=== PATIENT | male | born 1940 | race Caucasian/White ===

== ENCOUNTER 2017-02-12 07:45 | Day surgery (SDC) | payer MEDICARE ==
[~2017-02-12] VITALS: Ht 172.7 cm; Wt 79.0 kg
[2017-02-12] MEDS ORDERED: NORCO 325 MG-51 TAB PO (08:27)
[2017-02-12] MEDS ORDERED: XARELTO20 MG PO (08:28)
[2017-02-12 08:34] LABS: INR 1.8 (0.8-3.0); PROTHROMBIN TIME 19.9 SECONDS (9.7-12.8)
[2017-02-12 08:37] VITALS: BP 155/93; PULSE 56; TEMP 97.5
[2017-02-12 08:50] LABS: HEMATOCRIT 45.2 % (42.0-52.0); HEMOGLOBIN 15.8 g/dl (13.5-18.0); MEAN CELL VOLUME 85 fl (80.0-100.0); MEAN CORPUSCULAR HEMOGLOBIN 30 pg (27.0-31.0); MEAN CORPUSCULAR HGB CONC 35 g/dl (33.0-37.0); MEAN PLATELET VOLUME 9.5 fl (7.4-10.4); PLATELET COUNT 234 K/mm3 (130-400); RED BLOOD COUNT 5.32 M/mm3 (4.20-5.60); WHITE BLOOD COUNT 8.2 K/mm3 (4.8-10.8)
[2017-02-12 09:30] VITALS: BP 137/101; PULSE 82
[2017-02-12 09:45] VITALS: BP 120/93; PULSE 80
[2017-02-12 10:00] VITALS: BP 96/69; PULSE 81
[2017-02-12 10:00] LABS: CALCIUM 9.5 mg/dL (8.4-10.2); CREATININE, serum 1.1 mg/dL (0.66-1.25); POTASSIUM 4.1 mmol/L (3.4-5.0)
[2017-02-12 10:15] VITALS: BP 156/95; PULSE 82
[2017-02-12] MEDS ORDERED: ELIQUIS 5MG PO (10:26)
== END 2017-02-12 10:40 | disposition home or self-care (01) ==
LOC: COL.CAR 07:45
PROVIDERS: Internal Medicine Cardiovascular Disease
DX: I48.0 Paroxysmal atrial fibrillation (principal); Z79.01 Long term (current) use of anticoagulants; Z87.891 Personal history of nicotine dependence
CPT/HCPCS: J2704; J7120

== ENCOUNTER 2018-07-17 06:07 | Day surgery (SDC) | payer MEDICARE ==
[~2018-07-17] VITALS: Ht 172.8 cm; Wt 80.4 kg
[~2018-07-17 06:07] MED LIST: ELIQUIS 5MG PO; NORCO 325 MG-51 TAB PO; XARELTO20 MG PO
[2018-07-17 06:32] LABS: HEMATOCRIT 44.8 % (42.0-52.0); HEMOGLOBIN 15.4 g/dl (13.5-18.0); MEAN CELL VOLUME 84 fl (80.0-100.0); MEAN CORPUSCULAR HEMOGLOBIN 29 pg (27.0-31.0); MEAN CORPUSCULAR HGB CONC 34 g/dl (33.0-37.0); MEAN PLATELET VOLUME 8.8 fl (7.4-10.4); PLATELET COUNT 255 K/mm3 (130-400); RED BLOOD COUNT 5.35 M/mm3 (4.20-5.60); REDCELL DISTRIBUTION WIDTH-CV 13.7 % (11.5-14.5)
[2018-07-17 06:38] LABS: INR 4.7 (0.8-3.0)
[2018-07-17 06:42] LABS: CALCIUM 8.9 mg/dL (8.4-10.2); CREATININE, serum 1.2 (0.66-1.25); POTASSIUM 3.9 mmol/L (3.4-5.0)
[2018-07-17 06:45] LABS: PROTHROMBIN TIME 53.9 SECONDS (9.7-12.8)
[2018-07-17 07:39] VITALS: BP 137/94; PULSE 65; TEMP 98.2
[2018-07-17] MEDS ORDERED: ASPIRIN 32325 MG/TAB PO (07:43)
[2018-07-17] MEDS ORDERED: COUMADIN 5MG5 MG/TAB PO ×2 (07:44)
[2018-07-17] MEDS ORDERED: NORVASC 5MG5 MG/TAB PO (07:49)
[2018-07-17] MEDS ORDERED: PACERONE400 MG PO (09:16)
[2018-07-17 09:35] VITALS: BP 144/96; PULSE 71
--- NOTE | 2018-07-17 09:38 | NUR ---
Report received from Aubrie Infante.
[2018-07-17 09:40] VITALS: BP 144/96; PULSE 74
[2018-07-17 09:55] VITALS: BP 153/98; PULSE 67
[2018-07-17 10:10] VITALS: BP 165/106; PULSE 67
[2018-07-17 10:25] VITALS: BP 158/107; PULSE 67
--- NOTE | 2018-07-17 10:44 | NUR ---
Discharge instructions given to pt.Pt verbalizes understanding.INT removed,catheter tip intact.
--- NOTE | 2018-07-17 11:06 | NUR ---
Pt escorted out via wheelchair by this nurse.
== END 2018-07-17 11:06 | disposition home or self-care (01) ==
LOC: COL.CAR 06:07
PROVIDERS: Internal Medicine Cardiovascular Disease
DX: I48.1 Persistent atrial fibrillation (principal); I08.1 Rheumatic disorders of both mitral and tricuspid valves; R55 Syncope and collapse; I10 Essential (primary) hypertension; Z87.891 Personal history of nicotine dependence; Z88.0 Allergy status to penicillin; Z79.82 Long term (current) use of aspirin; Z79.01 Long term (current) use of anticoagulants
CPT/HCPCS: J2704; J7120